=== PATIENT | female | born 1965 | race Caucasian/White ===

== ENCOUNTER 2016-03-06 12:38 | Emergency (ER) | payer OTHER ==
[~2016-03-06] VITALS: Ht 167.6 cm; Wt 137.2 kg
[~2016-03-06 12:38] MED LIST: ADVAIR 250/501 DISK IH; AMOXICILLI250 MG/5 M PO; ASPIRIN81 M1 PO; ATARAX,VISTARIL25 MG PO; ATARAX,VISTARIL50 MG PO; ATIVAN1 M1 PO; ATIVAN1 MG PO; BACTRIM,SEPT1 TABLET PO; BACTROBAN OINTM22 GM TP; BENTYL10 MG PO; BUSPAR15 MG PO; BUSPAR30 MG PO; CARAFATE1 GM PO; CARAFATE100 MG/ML PO; CEFDINIR300 MG PO; CELEXA20 MG PO; CETIRIZINE HCL10 M2 PO; CHLORASEPTIC M1 EACH MM; CIPRO500 MG PO; CLONAZEPAM1 MG PO; COUMADIN,JANTOVE1 MG PO; COUMADIN,JANTOVE2 MG PO; COUMADIN2 MG PO; COUMADIN3 MG PO; Ceftin PO; DICLOXACILLIN500 MG PO; Ecotrin PO; FANATREX25 MG/1 ML PO; FLEXERIL5 MG PO; Flagyl PO; GABAPENTIN300 M1 PO; GABAPENTIN300 MG PO; GEODON80 MG PO; HYDROXYZINE HCL50 M1 PO; HYDROXYZINE HCL50 MG PO; IBUPROFEN600 MG PO; INDERAL10 MG PO; KEFLEX500 MG PO; KENALOG,ARISTOC80 GM TP; LASIX40 MG PO; LATUDA60 MG PO; LATUDA80 MG PO; LEVOTHROID100 MCG PO; LEVOTHYROXINE88 MCG PO; LYRICA75 MG PO; Levaquin PO; METHADONE1 MG/1 ML PO; MICRO-K,K-DUR,10 MEQ PO; MICRO-K10 ME1 PO; MOBIC7.5 MG PO; MORPHINE SULFAT15 M1 PO; MOTRIN600 MG PO; MOTRIN800 MG PO; MYCOSTATIN 100,60 ML PO; NALTREXONE HCL50 MG PO; NAPROSYN500 MG PO; NEURONTIN100 MG PO; NEURONTIN300 MG PO; NORCO 5/3251 TABLET PO; NORCO 7.5/321 TABLET PO; NYAMYC60 GM TP; NYSTATIN-TRIAMC15 G1 TP; NYSTATIN15 GM TP; NYSTOP60 GM TP; PERCOCET 10/1 TABLET PO; PERCOCET 5/31 TABLET PO; POTASSIUM CHLO10 ME3 PO; PREDNISONE; PREDNISONE20 MG PO; PRILOSEC OTC20 MG PO; PRILOSEC20 MG PO; PRILOSEC40 MG PO; PROVENTIL HFA6.7 GM IH; PROVENTIL,VENTOL2 MG PO; Protonix PO; QUETIAPINE FUM100 MG PO; QUETIAPINE FUM300 MG PO; RANITIDINE HCL300 MG PO; RESTORIL30 MG PO; ROXICET 5-325500 ML PO; SEROQUEL XR200 MG PO; SEROQUEL XR300 MG PO; SEROQUEL XR50 MG PO; SEROQUEL50 MG PO; SIMVASTATIN40 M1 PO; SIMVASTATIN40 MG PO; SKELAXIN800 MG PO; SYMBICORT60 INHALAT IH; SYNTHROID100 MCG PO; TEMAZEPAM30 MG PO; TESSALON PERLE100 MG PO; TIROSINT100 MCG PO; TRAZODONE HCL50 MG PO; VALIUM5 MG PO; VENTOLIN HFA18 GM IH; VICODIN,LORT1 TABLET PO; WELLBUTRIN XL300 MG PO; ZANTAC150 MG PO; ZITHROMAX Z-PA250 MG PO; ZOCOR40 MG PO; ZOFRAN4 MG PO; ZOLOFT100 M1 PO; ZOLOFT50 MG PO; ZYRTEC10 M1 PO
[2016-03-06 13:47] LABS: HEMATOCRIT 41.6 % (36.0-46.0); MCH 31.6 PG (29.0-34.0); MCHC 33.7 G/DL (30.0-36.0); MCV 93.9 FL (83-99); MEAN PLAT.VOLUME 11.4 uM^3 (9.5-12.4); PLATELET COUNT 229 K/uL (156-360); RBC DIS.WIDTH-CV 13.6 % (11.8-14.6); RBC DIS.WIDTH-SD 45.2 % (39-53); RED BLOOD COUNT 4.43 M/uL (3.80-5.20); WHITE BLOOD COUNT 6.6 K/uL (4.1-10.2)
[2016-03-06] MEDS ORDERED: MOBIC15 MG PO (14:06)
[2016-03-06 14:16] LABS: ANION GAP 9 MEQ/L (2-14); CHLORIDE 105 MEQ/L (99-109); POTASSIUM 4.2 MEQ/L (3.7-5.4); SAMPLE HEMOLYSIS CHECK 1; SAMPLE ICTERIC CHECK 0; SAMPLE LIPEMIA CHECK 0; SODIUM 142 MEQ/L (136-147); TOTAL BILIRUBIN 0.4 MG/DL (0.0-1.0)
[2016-03-06 14:21] LABS: ALKALINE PHOSPHATASE 110 IU/L (3-129); GFR ESTIMATE (CALCULATED) > 59 mL/min/; GLUCOSE 75 mg/dL (70-99); UREA NITROGEN (BUN) 7 mg/dL (9-23)
[2016-03-06 16:34] LABS: ADD MIUA? YES; BILIRUBIN NEGATIVE; BLOOD NEGATIVE; COLOR YELLOW ((YELLOW)); GLUCOSE (STRIP) NEGATIVE; KETONES NEGATIVE; LEUKOCYTES MODERATE; NITRITE NEGATIVE; PROTEIN (STRIP) NEGATIVE; SPECIFIC GRAVITY 1.009 (1.000-1.030); UROBILINOGEN 0.2 MG/DL (0.2-1.0)
[2016-03-06 16:44] LABS: BACTERIA 1+; CASTS NONE SEEN /LPF; CRYSTALS NONE SEEN; EPITHELIAL CELLS RARE; MUCUS NONE SEEN; PATHOLOGICAL CAST NONE SEEN; RED BLOOD CELLS 0-5 /HPF (0-5); SMALL ROUND CELL NONE SEEN; UCUL ADDED? NO; WHITE BLOOD CELLS 15-20 /HPF (0-5); YEAST-LIKE CELL NONE SEEN
[2016-03-06] MEDS ORDERED: ZOFRAN ODT4 MG PO (16:50)
[2016-03-06] MEDS ORDERED: PERCOCET 5/31 TABLET PO (16:57)
[2016-03-06 17:24] VITALS: BP 170/103
== END 2016-03-06 17:30 | disposition home or self-care (01) ==
LOC: EME 12:38
DX: R10.30 Lower abdominal pain, unspecified (principal); E78.5 Hyperlipidemia, unspecified; E03.9 Hypothyroidism, unspecified; F17.200 Nicotine dependence, unspecified, uncomplicated; Z88.8 Allergy status to other drugs, medicaments and biological substances; Z91.041 Radiographic dye allergy status
CPT/HCPCS: 74177; 80053; 81003; 84702; 85027; 87077; 87086; 87186; 99281; 99285; J2270; J2405; J7030

== ENCOUNTER 2016-03-12 17:08 | Emergency (ER) | payer OTHER ==
[~2016-03-12] VITALS: Ht 167.6 cm; Wt 136.5 kg
[~2016-03-12 17:08] MED LIST changes: +MOBIC15 MG PO; +ZOFRAN ODT4 MG PO
[2016-03-12 17:44] LABS: HEMATOCRIT 36.7 % (36.0-46.0); MCH 31.5 PG (29.0-34.0); MCHC 34.3 G/DL (30.0-36.0); MCV 91.8 FL (83-99); MEAN PLAT.VOLUME 10.4 uM^3 (9.5-12.4); PLATELET COUNT 227 K/uL (156-360); RBC DIS.WIDTH-CV 13.4 % (11.8-14.6); RBC DIS.WIDTH-SD 43.7 % (39-53)
[2016-03-12 17:57] LABS: CHLORIDE 103 mEq/L (99-109); POTASSIUM 4.1 mEq/L (3.7-5.4); SODIUM 140 mEq/L (136-147)
[2016-03-12 17:58] LABS: GLUCOSE 89 mg/dL (70-99)
[2016-03-12 18:00] LABS: ANION GAP 9 MEQ/L (2-14)
[2016-03-12 18:02] LABS: GFR ESTIMATE (CALCULATED) > 59 mL/min/
[2016-03-12 18:09] LABS: UREA NITROGEN (BUN) 6 mg/dL (9-23)
[2016-03-12 18:11] LABS: TROP-I INTERPRETATION NEGATIVE; TROPONIN-I < 0.01 ng/mL (0.0-0.30)
[2016-03-12 18:18] LABS: D-DIMER ELISA 0.77 mg/L FEU (< 0.57); INTER. NORMALIZED RATIO 1.1; PROTHROMBIN TIME 10.9 (9.2-11.2); PTT 28.7 (25-32)
[2016-03-12] MEDS ORDERED: MEDROL DOSEPAK4 MG PO (22:09)
[2016-03-12] MEDS ORDERED: LEVAQUIN500 MG PO (22:09)
[2016-03-12] MEDS ORDERED: PROVENTIL HFA6.7 GM IH (22:09)
[2016-03-12 23:03] VITALS: BP 136/85
== END 2016-03-12 23:10 | disposition home or self-care (01) ==
LOC: EME 17:08
PROVIDERS: Emergency Medicine
DX: J40 Bronchitis, not specified as acute or chronic (principal); R07.89 Other chest pain; R68.84 Jaw pain; R42 Dizziness and giddiness; E78.5 Hyperlipidemia, unspecified; E03.9 Hypothyroidism, unspecified; Z86.711 Personal history of pulmonary embolism; F17.200 Nicotine dependence, unspecified, uncomplicated
CPT/HCPCS: 71020; 71250; 71275; 80048; 84484; 85027; 85379; 85610; 85730; 93005; 94640; 99281; 99285; J1100; J1170; J1956; J2270; J2405

== ENCOUNTER 2016-08-01 12:22 | Emergency (ER) | payer OTHER ==
[~2016-08-01] VITALS: Ht 162.6 cm; Wt 136.8 kg
[~2016-08-01 12:22] MED LIST changes: +LEVAQUIN500 MG PO; +MEDROL DOSEPAK4 MG PO
[2016-08-01] MEDS ORDERED: LIDODERM 5% P1 PATCH TD (16:55)
[2016-08-01] MEDS ORDERED: NAPROXEN500 MG PO (16:55)
[2016-08-01] MEDS ORDERED: FLEXERIL10 MG PO (16:55)
[2016-08-01 17:48] VITALS: BP 140/98
== END 2016-08-01 17:49 | disposition home or self-care (01) ==
LOC: EME 12:22
DX: M54.5 Low back pain (principal); E78.5 Hyperlipidemia, unspecified; E03.9 Hypothyroidism, unspecified; Z86.718 Personal history of other venous thrombosis and embolism; Z86.711 Personal history of pulmonary embolism; Z91.5 Personal history of self-harm
CPT/HCPCS: 72100; 99281; 99284; J1885

== ENCOUNTER 2016-08-12 14:09 | Emergency (ER) | payer OTHER ==
[~2016-08-12] VITALS: Ht 162.6 cm; Wt 141.4 kg
[~2016-08-12 14:09] MED LIST changes: +FLEXERIL10 MG PO; +LIDODERM 5% P1 PATCH TD; +NAPROXEN500 MG PO
[2016-08-12] MEDS ORDERED: DIAZEPAM5 MG PO (14:39)
[2016-08-12] MEDS ORDERED: INDERAL10 MG PO ×2 (14:40→14:42)
[2016-08-12 14:46] LABS: EOSINOPHIL (%) 1.5 % (0-5); EOSINOPHIL COUNT 0.1 K/uL (0-0.3); HEMATOCRIT 40.1 % (36.0-46.0); IMMATURE GRANULOCYTE (%) 0.3 % (0.0-0.7); INSTRUMENT ABS NEUTROPHIL CT 4.5 K/uL; LYMPHOCYTE COUNT 3.4 K/uL (1.0-2.8); MCH 30.6 PG (29.0-34.0); MCHC 33.2 G/DL (30.0-36.0); MCV 92.4 FL (83-99); MONOCYTE (%) 8.1 % (3-12); MONOCYTE COUNT 0.7 K/uL (0-0.8); NEUTROPHIL (%) 51.1 % (45-76); NEUTROPHIL COUNT 4.5 K/uL (1.8-6.4); PLATELET COUNT 220 K/uL (156-360); RBC DIS.WIDTH-CV 12.9 % (11.8-14.6); RBC DIS.WIDTH-SD 43.8 % (39-53); RED BLOOD COUNT 4.34 M/uL (3.80-5.20); WHITE BLOOD COUNT 8.8 K/uL (4.1-10.2)
[2016-08-12 14:55] LABS: CHLORIDE 102 mEq/L (99-109); POTASSIUM 4.2 mEq/L (3.7-5.4); SODIUM 138 mEq/L (136-147)
[2016-08-12 14:57] LABS: GLUCOSE 89 mg/dL (70-99)
[2016-08-12 14:58] LABS: ANION GAP 9 MEQ/L (2-14)
[2016-08-12 15:00] LABS: GFR ESTIMATE (CALCULATED) > 59 mL/min/
[2016-08-12 15:01] LABS: INTER. NORMALIZED RATIO 1.1; PROTHROMBIN TIME 10.7 (9.2-11.2); PTT 29.2 (25-32); UREA NITROGEN (BUN) 7 mg/dL (9-23)
[2016-08-12 15:07] LABS: TROP-I INTERPRETATION NEGATIVE; TROPONIN-I < 0.01 ng/mL (0.0-0.30)
[2016-08-12] MEDS ORDERED: ZITHROMAX Z-PA250 MG PO (17:23)
[2016-08-12] MEDS ORDERED: VENTOLIN HFA18 GM IH (17:23)
[2016-08-12] MEDS ORDERED: PREDNISONE20 MG PO (17:23)
[2016-08-12 17:49] VITALS: BP 129/80
== END 2016-08-12 18:08 | disposition left against medical advice (07) ==
LOC: EME 14:09
PROVIDERS: Emergency Medicine
DX: J20.9 Acute bronchitis, unspecified (principal); E78.5 Hyperlipidemia, unspecified; K21.9 Gastro-esophageal reflux disease without esophagitis; Z87.891 Personal history of nicotine dependence
CPT/HCPCS: 71010; 80048; 84484; 85025; 85610; 85730; 93005; 94640; 99281; 99283; J7512

== ENCOUNTER 2016-08-23 12:21 | Emergency (ER) | payer OTHER ==
[~2016-08-23] VITALS: Ht 162.6 cm; Wt 137.9 kg
[~2016-08-23 12:21] MED LIST changes: +DIAZEPAM5 MG PO
[2016-08-23 15:18] VITALS: BP 139/83
== END 2016-08-23 15:15 | disposition home or self-care (01) ==
LOC: EME 12:21
DX: M54.5 Low back pain (principal); G89.29 Other chronic pain; F19.10 Other psychoactive substance abuse, uncomplicated; E78.5 Hyperlipidemia, unspecified; E03.9 Hypothyroidism, unspecified; F31.9 Bipolar disorder, unspecified; I89.0 Lymphedema, not elsewhere classified; E66.01 Morbid (severe) obesity due to excess calories; Z68.43 Body mass index [BMI] 50.0-59.9, adult; Z86.711 Personal history of pulmonary embolism; Z86.718 Personal history of other venous thrombosis and embolism; Z91.5 Personal history of self-harm
CPT/HCPCS: 99281; 99283; J1885

== ENCOUNTER 2017-03-19 11:22 | Emergency (ER) | payer OTHER ==
[~2017-03-19] VITALS: Ht 165.1 cm; Wt 138.7 kg
[2017-03-19 12:34] LABS: HEMATOCRIT 40.3 % (36.0-46.0); HEMOGLOBIN 13.8 G/DL (11.9-15.5); MCH 31.4 PG (29.0-34.0); MCHC 34.2 G/DL (30.0-36.0); MCV 91.6 FL (83-99); PLATELET COUNT 218 K/uL (156-360); RBC DIS.WIDTH-CV 13.5 % (11.8-14.6); RBC DIS.WIDTH-SD 45.8 % (39-53); WHITE BLOOD COUNT 7.5 K/uL (4.1-10.2)
[2017-03-19 12:45] LABS: ALBUMIN 3.7 g/dL (3.2-4.8); CHLORIDE 105 mEq/L (99-109); POTASSIUM 4.3 mEq/L (3.7-5.4); SODIUM 140 mEq/L (136-147)
[2017-03-19 12:47] LABS: GLUCOSE 108 mg/dL (70-99); TOTAL PROTEIN 7.2 g/dL (6.4-8.3)
[2017-03-19 12:49] LABS: TOTAL BILIRUBIN 0.3 mg/dL (0.0-1.0)
[2017-03-19 12:51] LABS: ALKALINE PHOSPHATASE 95 IU/L (3-129); CREATININE 0.8 mg/dL (0.6-1.3); GFR ESTIMATE (CALCULATED) > 59 mL/min/
[2017-03-19 12:52] LABS: UREA NITROGEN (BUN) 9 mg/dL (9-23)
[2017-03-19 12:53] LABS: AST (GOT) 19 IU/L (2-34)
[2017-03-19 12:54] LABS: ALT (GPT) 12 IU/L (3-49)
[2017-03-19 13:01] LABS: QUANTITATIVE HCG < 4.0 MIU/ML
[2017-03-19 13:55] LABS: APPEARANCE CLEAR ((CLEAR)); BILIRUBIN NEGATIVE; BLOOD NEGATIVE; COLOR STRAW ((YELLOW)); GLUCOSE (STRIP) NEGATIVE; KETONES NEGATIVE; LEUKOCYTES NEGATIVE; NITRITE NEGATIVE; PROTEIN (STRIP) NEGATIVE; SPECIFIC GRAVITY 1.004 (1.000-1.030); UCUL ADDED? NO; UROBILINOGEN 0.2 MG/DL (0.2-1.0)
[2017-03-19 16:09] VITALS: BP 132/72
== END 2017-03-19 16:09 | disposition home or self-care (01) ==
LOC: EME 11:22
DX: R10.32 Left lower quadrant pain (principal); K57.30 Diverticulosis of large intestine without perforation or abscess without bleeding; J45.909 Unspecified asthma, uncomplicated; E78.5 Hyperlipidemia, unspecified; Z85.41 Personal history of malignant neoplasm of cervix uteri; Z86.711 Personal history of pulmonary embolism; F17.210 Nicotine dependence, cigarettes, uncomplicated; R56.9 Unspecified convulsions; K21.9 Gastro-esophageal reflux disease without esophagitis; F32.9 Major depressive disorder, single episode, unspecified; F41.9 Anxiety disorder, unspecified; Z86.73 Personal history of transient ischemic attack (TIA), and cerebral infarction without residual deficits
CPT/HCPCS: 74177; 80053; 81003; 84702; 85027; 99281; 99285; J2270; J2405; J7030